=== PATIENT | male | born 1985 | race African-American/Black ===

== ENCOUNTER 2017-08-22 05:51 | Emergency (ER) | payer SELFPAY ==
[~2017-08-22] VITALS: Ht 172.7 cm; Wt 77.1 kg
[2017-08-22 05:58] VITALS: BP 136/84
== END 2017-08-22 06:43 | disposition home or self-care (01) ==
LOC: ER 05:55
DX: S93.601A Unspecified sprain of right foot, initial encounter (principal); X58.XXXA Exposure to other specified factors, initial encounter; Y93.89 Activity, other specified; Y92.89 Other specified places as the place of occurrence of the external cause; Y99.8 Other external cause status
CPT/HCPCS: 73630; 99284; A4606; Z7610